=== PATIENT | female | born 1980 | race Caucasian/White ===

== ENCOUNTER 2016-09-09 09:09 | Emergency (ER) | payer MEDICAID ==
[2016-09-09 09:09] VITALS: BMI 37.1
[2016-09-09 09:16] VITALS: TEMP 98
--- NOTE | 2016-09-09 09:45 | C.PDOC ---
History Of Present Illness 36-year-old female, presents to the emergency department with complaints of left eye pain for the past two days. 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 Also requesting refill of other meds Time Seen by Provider: 09/09/16 09:23 Chief Complaint (Nursing): Eye Problem History Per: Patient History/Exam Limitations: no limitations Onset/Duration Of Symptoms: Days (3) Current Symptoms Are (Timing): Still Present Past Medical History Reviewed: Historical Data, Nursing Documentation, Vital Signs Vital Signs: Last Vital Signs Temp 98 F 09/09/16 09:12 Pulse 72 09/09/16 09:57 Resp 18 09/09/16 09:57 BP 124/75 09/09/16 09:57 Pulse Ox 100 09/09/16 13:37 - Medical History PMH: Asthma Family History: States: No Known Family Hx - Social History Hx Tobacco Use: No Hx Alcohol Use: No Hx Substance Use: No - Immunization History Hx Tetanus Toxoid Vaccination: Yes Hx Influenza Vaccination: Yes Hx Pneumococcal Vaccination: Yes Review Of Systems Eyes: Positive for: Pain (left eye) Physical Exam - Physical Exam Appears: Non-toxic, No Acute Distress Skin: Warm, Dry, No Rash Head: Atraumatic Ear(s): Left: Other (mild injection) ED Course And Treatment O2 Sat by Pulse Oximetry: 100 Medical Decision Making Medical Decision Making: Pt advised she need to see the eye doctor as this is a recurrent problem that will need continued care, contact information for ophth given Disposition Counseled Patient/Family Regarding: Diagnosis, Need For Followup - Disposition Referrals: Thony Copeland MD [Staff Provider] - Disposition: HOME/ ROUTINE Disposition Time: 09:48 Condition: GOOD Additional Instructions: Follow up with eye doctor 1 -2 days Prescriptions: Albuterol HFA [Ventolin HFA 90 mcg/actuation (8 g)] 1 puff IH QID PRN #1 puff PRN Reason: Cough Ciprofloxacin 0.3% [Ciloxan 0.3% Ophth SOLN] 2 drop TOP BID #1 bottle Desloratadine/Pseudoephedrine [Clarinex-D 12 Hour Tablet] 1 tab PO Q12H PRN #30 tab PRN Reason: .alergic symptoms Mometasone Furoate [Nasonex] 1 puff NS DAILY #1 unit PrednisoLONE 1% [Pred Forte 1% Opht Susp] 1 drop TOP QID #1 bottle Instructions: Iritis (ED) Forms: Work Excuse - Clinical Impression Clinical Impression: Iritis of left eye, Seasonal allergies - Scribe Statement The provider has reviewed the documentation as recorded by the Scribe Aaron Berumen All medical record entries made by the Scribe were at my direction and personally dictated by me. I have reviewed the chart and agree that the record accurately reflects my personal performance of the history, physical exam, medical decision making, and the department course for this patient. I have also personally directed, reviewed, and agree with the discharge instructions and disposition.
[2016-09-09 09:59] VITALS: BP 124/75; PULSE 72; RESP 18
[2016-09-09 13:33] VITALS: O2SAT 100
== END 2016-09-09 10:00 | disposition home or self-care (01) ==
LOC: C.ER 09:09 → SUPCPDRO 09:09 → C.ER 10:00
DX: H20.9 Unspecified iridocyclitis (principal); J30.2 Other seasonal allergic rhinitis